=== PATIENT | female | born 1940 | race Caucasian/White ===

== ENCOUNTER → 2016-06-04 | Outpatient (CLI) | payer MEDICARE, OTHER ==
[~2016-06-04] VITALS: Ht 162.6 cm; Wt 70.0 kg
[~2016-06-04] MED LIST: ACET500C PO; BACITAB3 PO; BIMA01SOL OU; COUM1TAB19 PO; FERG1TAB PO; FERR32TA PO; FURO40TA2 PO; GEMF600T PO; GLIP2.5T6 PO; HYDR12CA PO; HYDR1OI TOP; K-TA1TAB PO; KEFL500C7 PO; LEVO100T5 PO; MAGN400T2 PO; MAPA325T2 PO; METF1000 PO; NEUR100C PO; NORC5TAB PO; NS 1,000 ML IV SCH; POTA10PO PO; PROPOFOL 200 MG/20 ML VIAL As Ordered ONE; RAMI10CA PO; REGL10TA6 PO; SIMV20TA2 PO; VALS1TAB46 PO; VITA-130 PO; XARALTO PO
--- NOTE | 2016-06-04 15:05 | ROOR ---
Patient Name: Patience Gonzalez Procedure Date: 06/04/2016 2:54 PM Date of : 1940 Age: 76 [place] [facility] [place]: Female Note Status: Finalized Procedure: Colonoscopy to Rectosigmoid (POOR PREP) Indications: Screening for colorectal malignant neoplasm Providers: Ankit Palomares MD Referring MD: Nahomy Killian DO Requesting Provider: Medicines: Monitored Anesthesia Care Complications: No immediate complications. Procedure: Pre-Anesthesia Assessment: - The heart rate, respiratory rate, oxygen saturations, blood pressure, adequacy of pulmonary ventilation, and response to care were monitored throughout the procedure. The Colonoscope was introduced through the anus with the intention of advancing to the cecum. The scope was advanced to the rectum before the procedure was aborted. Medications were given. The colonoscopy was performed without difficulty. The patient tolerated the procedure well. The quality of the bowel preparation was inadequate. Findings: The perianal and digital rectal examinations were normal. Non-bleeding internal hemorrhoids were found during retroflexion. The hemorrhoids were small and Grade I (internal hemorrhoids that do not prolapse). A large amount of stool was found in the recto-sigmoid colon, precluding visualization. The exam was otherwise without abnormality. Impression: - Preparation of the colon was inadequate. - Non-bleeding internal hemorrhoids. - Stool in the recto-sigmoid colon. - The examination was otherwise normal. - No specimens collected. - The exam was suboptimal due to patient preparation. Recommendation: - Discharge patient to home. - Resume Xarelto (rivaroxaban) at prior dose today. - The findings and recommendations were discussed with the patient's family. Ankit Palomares MD Ankit Palomares MD 06/04/2016 3:04:14 PM This report has been signed electronically. Number of Addenda: 0 Note Initiated On: 06/04/2016 2:54 PM Estimated Blood Loss: Estimated blood loss: none.
[2016-06-04 15:08] VITALS: BP 130/69
== END ==
LOC: M OPP 14:14
PROVIDERS: ATTEND Internal Medicine Gastroenterology
DX: Z12.11 Encounter for screening for malignant neoplasm of colon (principal); K64.0 First degree hemorrhoids; E11.9 Type 2 diabetes mellitus without complications; E78.00 Pure hypercholesterolemia, unspecified; I10 Essential (primary) hypertension; Z87.891 Personal history of nicotine dependence; Z79.899 Other long term (current) drug therapy; Z79.02 Long term (current) use of antithrombotics/antiplatelets

== ENCOUNTER 2016-06-29 10:49 | Emergency (ER) | payer MEDICARE, OTHER ==
[~2016-06-29 10:49] MED LIST changes: +CLIN1CAP5 PO; +FOSA70TA3 PO; +K-TA10TA PO; -NS 1,000 ML IV SCH; -PROPOFOL 200 MG/20 ML VIAL As Ordered ONE
[2016-06-29 12:19] LABS: ANION GAP 9 MEQ/L (8-16); BLOOD UREA NITROGEN 11 MG/DL (7-18); CARBON DIOXIDE LEVEL 25 MEQ/L (21-32); CHLORIDE LEVEL 106 MEQ/L (98-107); GLOMERULAR FILTRATION RATE > 60.0 (>39); GLUCOSE, FASTING 124 MG/DL (83-110); SODIUM LEVEL 140 MEQ/L (136-145)
[2016-06-29 12:24] LABS: BASO # 0.1 K/mm3 (0.0-0.2); BASO % 0.9 % (0.0-1.0); EOS # 0.3 K/mm3 (0.0-0.50); EOS % 3.6 % (0.0-3.0); LARGE UNSTAINED CELL # 0.2 K/mm3 (0.0-0.4); LARGE UNSTAINED CELL % 2.8 % (0.0-4.0); LYMPH # 1.3 K/mm3 (1.5-4.5); LYMPH % 16.1 % (24.0-44.0); MEAN CORPUSCULAR HEMOGLOBIN 19.4 pg (27.0-33.0); MEAN CORPUSCULAR HGB CONC 27.4 g/dl (32.0-36.5); MEAN CORPUSCULAR VOLUME 70.8 fl (80.0-96.0); MONO # 0.4 K/mm3 (0.0-0.8); MONO % 4.8 % (0.0-5.0); NEUTROPHILS # 5.8 K/mm3 (1.8-7.7); NEUTROPHILS % 71.8 % (36.0-66.0); PLATELET COUNT, AUTOMATED 411 k/mm3 (150-450); RED CELL DISTRIBUTION WIDTH 17.3 % (11.5-14.5)
[2016-06-29 12:46] LABS: ADD MORPHOLOGY? YES
--- NOTE | 2016-06-29 12:46 | REP ---
Clinical: Infection. Technique: AP, lateral, bilateral oblique views of the right ankle. Findings: Osteopenia and age-related degenerative changes are appreciated along with diffuse soft tissue swelling. No acute fracture or dislocation. Ankle mortise intact. No subcutaneous emphysema, radiodense foreign body, or significant periosteal reaction. Impression: Soft-tissue swelling. Degenerative changes. Signed by Jan Villatoro MD 06/29/2016 12:37 P
[2016-06-29 12:58] LABS: ANISOCYTOSIS 1+; HYPOCHROMASIA 2+; MICROCYTOSIS 2+; PLATELET CLUMPS SMALL AMT
[2016-06-29 13:15] LABS: ERYTHROCYTE SEDIMENTATION RATE 35 mm/hr (0-30)
--- NOTE | 2016-06-29 13:27 | EDDOCDS ---
Physician Documentation [facility] Name: Patience Gonzalez Age: 76 yrs Sex: Female : 1940 Arrival Date: 06/29/2016 Time: 10:49 Bed [facility] MD: Nahomy Killian E Disposition: 06/29/16 13:09 Discharged to Home/Self Care. Impression: Cellulitis of right lower limb - with chronic ulcer, medial right ankle. - Condition is Stable. - Discharge Instructions: Cellulitis. - Prescriptions for Clindamycin HCl 300 mg Oral Capsule - take 1 capsule by ORAL route every 6 hours; 40 capsule. Tylenol- Codeine #3 300-30 mg Oral Tablet - take 1 tablet by ORAL route at bedtime As needed MDD: 4 tabs; 10 tablet. - Medication Reconciliation, Local Pharmacy Hours form. - Follow up: Emergency Department; When: As needed; Reason: Worsening of conditions. Follow up: Nahomy Killian; When: 2 - 3 days; Reason: Wound/Symptom Recheck, Recheck today's complaints, Continuance of care. - Problem is new. - Symptoms are unchanged. Historical: - Allergies: no known allergies; - Home Meds: 1. metformin 1,000 mg Oral tab 1 tab 2 times per day (Last dose: 06/29/2016 07:00) 2. valsartan 80 mg oral cap daily (Last dose: Unknown) 3. gemfibrozil 600 mg Oral tab daily (Last dose: Unknown) 4. levothyroxine 137 mcg Oral cap 1 cap once daily (Last dose: 06/29/2016) 5. simvastatin 20 mg Oral tab 1 tab once daily (Last dose: 06/28/2016) 6. ramipril 10 mg Oral cap once daily (Last dose: Unknown) 7. glipizide 2.5 mg Oral tr24 1 tabs once daily 8. Lasix 40 mg Oral tab once daily 9. Xarelto 20 mg oral tab 1 tab once daily 10. ferrous gluconate 325 mg (37 mg iron) Oral tab 11. magnesium oxide 400 mg Oral cap 800 mg three times a day - PMHx: Diabetes - NIDDM: controlled; Hypertension; Hypothyroidism; Hypercholesterolemia; - PSHx: Knee surgery- Right; - Social history: Smoking status: Patient states was never smoker of tobacco. Patient/guardian denies using alcohol, street drugs, No barriers to communication noted, The patient speaks fluent Lao, Speaks appropriately for age. - Family history: Not pertinent. - : Unable to assess if pt is on anticoagulants. Home medication list is obtained from the patient, patients' pharmacy. - Exposure Risk Screening:: None identified. Vital Signs: 06/29 10:50 BP 197 / 86; Pulse 87; Resp 18; Temp 97.5(T); Pulse Ox 100% on R/A; Weight 70.31 kg / dem1 155.01 lbs (M); Height 5 ft. 2 in. (157.48 cm) (M); Pain 8/10; 13:24 BP 186 / 94 LA Sitting (man/lg); Pulse 87; Resp 18; Temp 97.7(O); Pulse Ox 100% on R/A; jjr Pain 9/10; 10:50 Body Mass Index 28.35 (70.31 kg, 157.48 cm) dem1 MDM: 11:15 Accucheck ordered. btw 11:37 Fingerstick Blood Sugar Ordered. EDMS 11:43 Financial registration complete. mm15 11:45 [facility] Payment Agreement was scanned into [employer] and attached to record. mm15 11:50 CBC with Diff Ordered. EDMS 11:50 Basic Metabolic Profile Ordered. EDMS 11:50 Sed Rate Ordered. EDMS 11:50 CRP Ordered. EDMS 11:51 Ankle, Complete Ordered. EDMS Point of Care Testing: Blood Glucose: 11:18 Blood Glucose: 126 mg/dL; ttb Ranges: Signatures: Dispatcher [employer] EDMS Felicia Alfaro RN RN jjZacarias Valdivia PA PA btw Conner, Teresa, RN RN ttDianelys [place] mm15 Mary Perez PA-C PA-C dt4 The chart was reviewed and I authenticate all verbal orders and agree with the evaluation and treatment provided.Attachments: 11:45 [facility] Payment Agreement mm15 MTDD
--- NOTE | 2016-06-29 13:27 | EDDOCDS ---
Nurse's Notes [facility] Name: Patience Gonzalez Age: 76 yrs Sex: Female : 1940 Arrival Date: 06/29/2016 Time: 10:49 Bed PR1 / 25 Private MD: Nahomy Killian E Diagnosis: Cellulitis of right lower limb-with chronic ulcer, medial right ankle Presentation: 06/29 11:04 Presenting complaint: Patient states: "I got a sore on my ankle". Pt just left PCP ttb office -- states she did not show her. Right ankle with large area of macerated skin, foul smelling. Adult Sepsis Screening: The patient does not have new or worsening altered mentation. Patient's respiratory rate is less than 22. Systolic blood pressure is greater than 100. Patient has a qSOFA score of 0- Negative Sepsis Screen. Suicide/Homicide risk assessment- the patient denies having any suicidal and/or homicidal ideations and does not present with any other emotional, behavioral or mental health complaints. Status: Patient is not a financial services auditor or dependent. Transition of care: patient was not received from another setting of care. 11:04 Acuity: GRISEL Level 4 ttb 11:04 Method Of Arrival: Walkin/Carried/Asstd ttb Triage Assessment: 11:08 General: Appears in no apparent distress, well nourished, Behavior is appropriate for ttb age, cooperative, pleasant. Pain: Denies pain. Neurological: Level of Consciousness is awake, alert. Cardiovascular: Chest pain is denied. Respiratory: No deficits noted. Derm: Skin is normal, sore to left lateral ankle. Musculoskeletal: Range of motion intact in all extremities. Historical: - Allergies: no known allergies; - Home Meds: 1. metformin 1,000 mg Oral tab 1 tab 2 times per day (Last dose: 06/29/2016 07:00) 2. valsartan 80 mg oral cap daily (Last dose: Unknown) 3. gemfibrozil 600 mg Oral tab daily (Last dose: Unknown) 4. levothyroxine 137 mcg Oral cap 1 cap once daily (Last dose: 06/29/2016) 5. simvastatin 20 mg Oral tab 1 tab once daily (Last dose: 06/28/2016) 6. ramipril 10 mg Oral cap once daily (Last dose: Unknown) 7. glipizide 2.5 mg Oral tr24 1 tabs once daily 8. Lasix 40 mg Oral tab once daily 9. Xarelto 20 mg oral tab 1 tab once daily 10. ferrous gluconate 325 mg (37 mg iron) Oral tab 11. magnesium oxide 400 mg Oral cap 800 mg three times a day - PMHx: Diabetes - NIDDM: controlled; Hypertension; Hypothyroidism; Hypercholesterolemia; - PSHx: Knee surgery- Right; - Social history: Smoking status: Patient states was never smoker of tobacco. Patient/guardian denies using alcohol, street drugs, No barriers to communication noted, The patient speaks fluent Dutch, Speaks appropriately for age. - Family history: Not pertinent. - : Unable to assess if pt is on anticoagulants. Home medication list is obtained from the patient, patients' pharmacy. - Exposure Risk Screening:: None identified. Screenin:25 Screening information is obtained from the patient. Fall risk: No risks identified. jjr Assistance ADL's: requires no assistance with activities of daily living. Abuse/DV Screen: The patient / caregiver reports he/she is: not in a situation that causes fear, pain or injury. Nutritional screening: No deficits noted. Advance Directives: There is no active DNR order. home support is adequate. Assessment: 11:20 General: med list obtained from pharmacist and copy given to patient. Pt is a very poor ttb historian.. 13:25 General: Appears in no apparent distress, Behavior is pleasant. Musculoskeletal: jjr Reports pain in right foot. Vital Signs: 10:50 BP 197 / 86; Pulse 87; Resp 18; Temp 97.5(T); Pulse Ox 100% on R/A; Weight 70.31 kg dem1 (M); Height 5 ft. 2 in. (157.48 cm) (M); Pain 8/10; 13:24 BP 186 / 94 LA Sitting (man/lg); Pulse 87; Resp 18; Temp 97.7(O); Pulse Ox 100% on R/A; jjr Pain 9/10; 10:50 Body Mass Index 28.35 (70.31 kg, 157.48 cm) [facility] Vitals: 10:50 Log In Time: June 29, 2016 at 10:48. [facility] ED Course: 10:50 Patient visited by Aquiles Cameron. dem1 10:50 Nahomy Killian is Private Physician. dem1 10:50 Patient moved to Waiting dem1 10:53 Patient moved to Pre RCE dem1 11:03 Patient moved to Triage 3 jjr 11:06 Triage Initiated ttb 11:10 Patient visited by Jannie Read RN. ttb 11:20 Patient visited by Jannie Read RN. ttb 11:33 Mary Perez PA-C is PHCP. dt4 11:33 Marlene Kim MD is Attending Physician. dt4 11:34 Patient visited by Mary Perez PA-C. dt4 11:45 [id number] Payment Agreement was scanned into [employer] and attached to record. mm15 11:57 Patient visited by Jannie Read RN. ttb 11:57 Patient moved to TR2 ttb 11:57 Basic Metabolic Profile Sent. ttb 11:57 Sed Rate Sent. ttb 11:57 CRP Sent. ttb 11:57 CBC with Diff Sent. ttb 11:57 No IV's were initiated during this patient's visit. No procedures done that require ttb assistance. Labs drawn. (by ED staff). 12:47 Ankle, Complete Returned. EDMS 13:08 Nahomy Killian is Referral Physician. dt4 13:17 Patient moved to PR jjr 13:25 The patient / caregiver is instructed regarding the plan of care and ED course. jr Point of Care Testing: Blood Glucose: 11:18 Blood Glucose: 126 mg/dL; ttb Ranges: Order Results: Lab Order: Fingerstick Blood Sugar; SPEC'M 06/29/16 11:17 Test: BEDSIDE GLUCOSE; Value: 126; Range: 83-110; Abnormal: Above high normal; Units: MG/DL; Status: F Lab Order: CBC with Diff; SPEC'M 06/29/16 11:54 Test: WHITE BLOOD COUNT; Value: 8.0; Range: 4.0-10.0; Units: K/mm3; Status: F Test: RED BLOOD COUNT; Value: 4.93; Range: 4.00-5.40; Units: M/mm3; Status: F Test: HEMOGLOBIN; Value: 9.6; Range: 12.0-16.0; Abnormal: Below low normal; Units: g/dl; Status: F Test: HEMATOCRIT; Value: 34.9; Range: 36.0-47.0; Abnormal: Below low normal; Units: %; Status: F Test: MEAN CORPUSCULAR VOLUME; Value: 70.8; Range: 80.0-96.0; Abnormal: Below low normal; Units: fl; Status: F Test: MEAN CORPUSCULAR HEMOGLOBIN; Value: 19.4; Range: 27.0-33.0; Abnormal: Below low normal; Units: pg; Status: F Test: MEAN CORPUSCULAR HGB CONC; Value: 27.4; Range: 32.0-36.5; Abnormal: Below low normal; Units: g/dl; Status: F Test: RED CELL DISTRIBUTION WIDTH; Value: 17.3; Range: 11.5-14.5; Abnormal: Above high normal; Units: %; Status: F Test: PLATELET COUNT, AUTOMATED; Value: 411; Range: 150-450; Units: k/mm3; Status: F Test: NEUTROPHILS %; Value: 71.8; Range: 36.0-66.0; Abnormal: Above high normal; Units: %; Status: F Test: LYMPH %; Value: 16.1; Range: 24.0-44.0; Abnormal: Below low normal; Units: %; Status: F Test: MONO %; Value: 4.8; Range: 0.0-5.0; Units: %; Status: F Test: EOS %; Value: 3.6; Range: 0.0-3.0; Abnormal: Above high normal; Units: %; Status: F Test: BASO %; Value: 0.9; Range: 0.0-1.0; Units: %; Status: F Test: LARGE UNSTAINED CELL %; Value: 2.8; Range: 0.0-4.0; Units: %; Status: F Test: NEUTROPHILS #; Value: 5.8; Range: 1.8-7.7; Units: K/mm3; Status: F Test: LYMPH #; Value: 1.3; Range: 1.5-4.5; Abnormal: Below low normal; Units: K/mm3; Status: F Test: MONO #; Value: 0.4; Range: 0.0-0.8; Units: K/mm3; Status: F Test: EOS #; Value: 0.3; Range: 0.0-0.50; Units: K/mm3; Status: F Test: BASO #; Value: 0.1; Range: 0.0-0.2; Units: K/mm3; Status: F Test: LARGE UNSTAINED CELL #; Value: 0.2; Range: 0.0-0.4; Units: K/mm3; Status: F Lab Order: Basic Metabolic Profile; SPEC'M 06/29/16 11:54 Test: GLUCOSE, FASTING; Value: 124; Range: 83-110; Abnormal: Above high normal; Units: MG/DL; Status: F Test: BLOOD UREA NITROGEN; Value: 11; Range: 7-18; Units: MG/DL; Status: F Test: CREATININE FOR GFR; Value: 0.60; Range: 0.55-1.02; Units: MG/DL; Status: F Test: GLOMERULAR FILTRATION RATE; Value: > 60.0; Range: >39; Status: F Test: SODIUM LEVEL; Value: 140; Range: 136-145; Units: MEQ/L; Status: F Test: POTASSIUM SERUM; Value: 4.0; Range: 3.5-5.1; Units: MEQ/L; Status: F Test: CHLORIDE LEVEL; Value: 106; Range: 98-107; Units: MEQ/L; Status: F Test: CARBON DIOXIDE LEVEL; Value: 25; Range: 21-32; Units: MEQ/L; Status: F Test: ANION GAP; Value: 9; Range: 8-16; Units: MEQ/L; Status: F Test: CALCIUM LEVEL; Value: 9.0; Range: 8.8-10.2; Units: MG/DL; Status: F Test Note: ; Units are mL/min/1.73 m2 Chronic Kidney Disease Staging per NKF: Stage I & II GFR >=60 Normal to Mildly Decreased Stage III GFR 30-59 Moderately Decreased Stage IV GFR 15-29 Severely Decreased Stage V GFR <15 Very Little GFR Left ESRD GFR <15 on DIRECTOR OF PRODUCT [employer]ETING Lab Order: Sed Rate; SPEC'06/29/16 11:54 Test: ERYTHROCYTE SEDIMENTATION RATE; Value: 35; Range: 0-30; Abnormal: Above high normal; Units: mm/hr; Status: F Lab Order: CRP; SPEC'M 06/29/16 11:54 Test: C REACTIVE PROTEIN QUANTITATIV; Value: 0.31; Range: 0.00-0.30; Abnormal: Above high normal; Units: MG/DL; Status: F Lab Order: RBC MORPH PROF NO CHARGE; SPEC'M 06/29/16 11:54 Test: PLATELET ESTIMATE; Range: NORMAL; Status: I Test: HYPOCHROMASIA; Value: 2+; Status: F Test: ANISOCYTOSIS; Value: 1+; Status: F Test: MICROCYTOSIS; Value: 2+; Status: F Test: PLATELET CLUMPS; Value: SMALL AMT; Status: F Test: PLATELET ESTIMATE; Value: NORMAL; Range: NORMAL; Status: F Radiology Order: Ankle, Complete Test: Ankle, Complete REASON FOR EXAMINATION: right medial ankle infection; Clinical: Infection.; ; Technique: AP, lateral, bilateral oblique views of the right ankle.; ; Findings:; Osteopenia and age-related degenerative changes are appreciated along with; diffuse soft tissue swelling. No acute fracture or dislocation. Ankle mortise; intact. No subcutaneous emphysema, radiodense foreign body, or significant; periosteal reaction.; ; Impression:; Soft-tissue swelling.; Degenerative changes.; ; ; Signed by; Jan Villatoro MD 06/29/2016 12:37 P; Outcome: 13:09 Discharge ordered by Provider. dt4 13:25 Discharge Assessment: patient administered narcotics - no. The following High Risk jjr Discharge criteria are identified: None. Discharged to home ambulatory, with significant other. Condition: stable. Discharge instructions given to patient, Instructed on discharge instructions, follow up and referral plans. medication usage, Demonstrated understanding of instructions, medications, Prescriptions given X 2. No special radiology studies were completed. Property sent home with patient. 13:26 Patient left the ED. jjr Signatures: Dispatcher [employer] Felicia Beard RN RN jjr Mack, Demeishia dem1 Jannie Read RN RN Dianelys Hernandez mm15 Mary Perez, PA-C PA-C dt4 MTDD
--- NOTE | 2016-07-01 14:27 | EDDOCDS ---
Physician Documentation [facility] Name: Patience Gonzalez Age: 76 yrs Sex: Female : 1940 Arrival Date: 06/29/2016 Time: 10:49 Bed [facility] MD: Nahomy Killian E Disposition: 06/29/16 13:09 Discharged to Home/Self Care. Impression: Cellulitis of right lower limb - with chronic ulcer, medial right ankle. - Condition is Stable. - Discharge Instructions: Cellulitis. - Prescriptions for Clindamycin HCl 300 mg Oral Capsule - take 1 capsule by ORAL route every 6 hours; 40 capsule. Tylenol- Codeine #3 300-30 mg Oral Tablet - take 1 tablet by ORAL route at bedtime As needed MDD: 4 tabs; 10 tablet. - Medication Reconciliation, Local Pharmacy Hours form. - Follow up: Emergency Department; When: As needed; Reason: Worsening of conditions. Follow up: Nahomy Killian; When: 2 - 3 days; Reason: Wound/Symptom Recheck, Recheck today's complaints, Continuance of care. - Problem is new. - Symptoms are unchanged. Historical: - Allergies: no known allergies; - Home Meds: 1. metformin 1,000 mg Oral tab 1 tab 2 times per day (Last dose: 06/29/2016 07:00) 2. valsartan 80 mg oral cap daily (Last dose: Unknown) 3. gemfibrozil 600 mg Oral tab daily (Last dose: Unknown) 4. levothyroxine 137 mcg Oral cap 1 cap once daily (Last dose: 06/29/2016) 5. simvastatin 20 mg Oral tab 1 tab once daily (Last dose: 06/28/2016) 6. ramipril 10 mg Oral cap once daily (Last dose: Unknown) 7. glipizide 2.5 mg Oral tr24 1 tabs once daily 8. Lasix 40 mg Oral tab once daily 9. Xarelto 20 mg oral tab 1 tab once daily 10. ferrous gluconate 325 mg (37 mg iron) Oral tab 11. magnesium oxide 400 mg Oral cap 800 mg three times a day - PMHx: Diabetes - NIDDM: controlled; Hypertension; Hypothyroidism; Hypercholesterolemia; - PSHx: Knee surgery- Right; - Social history: Smoking status: Patient states was never smoker of tobacco. Patient/guardian denies using alcohol, street drugs, No barriers to communication noted, The patient speaks fluent Bengali, Speaks appropriately for age. - Family history: Not pertinent. - : Unable to assess if pt is on anticoagulants. Home medication list is obtained from the patient, patients' pharmacy. - Exposure Risk Screening:: None identified. Vital Signs: 06/29 10:50 BP 197 / 86; Pulse 87; Resp 18; Temp 97.5(T); Pulse Ox 100% on R/A; Weight 70.31 kg / dem1 155.01 lbs (M); Height 5 ft. 2 in. (157.48 cm) (M); Pain 8/10; 13:24 BP 186 / 94 LA Sitting (man/lg); Pulse 87; Resp 18; Temp 97.7(O); Pulse Ox 100% on R/A; jjr Pain 9/10; 10:50 Body Mass Index 28.35 (70.31 kg, 157.48 cm) dem1 MDM: 11:15 Accucheck ordered. btw 11:37 Fingerstick Blood Sugar Ordered. EDMS 11:43 Financial registration complete. mm15 11:45 [facility] Payment Agreement was scanned into [employer] and attached to record. mm15 11:50 CBC with Diff Ordered. EDMS 11:50 Basic Metabolic Profile Ordered. EDMS 11:50 Sed Rate Ordered. EDMS 11:50 CRP Ordered. EDMS 11:51 Ankle, Complete Ordered. EDMS 06/30 09:24 T-Sheet-- Draft Copy was scanned into [employer] and attached to record. gb 09:24 Radiology Report was scanned into [employer] and attached to record. Point of Care Testing: Blood Glucose: 06/29 11:18 Blood Glucose: 126 mg/dL; ttb Ranges: Signatures: Dispatcher [employer] EDMS Marifer Parrish, Reg Reg gb Felicia Alfaro, PETE RN Zacarias Dodge PA PA btw Conner, Teresa, RN RN ttb Dianelys Joel mm15 Mary Perez PA-C PA-C dt4 The chart was reviewed and I authenticate all verbal orders and agree with the evaluation and treatment provided.Attachments: 11:45 [facility] Payment Agreement mm15 02/18 09:24 T-Sheet-- Draft Copy gb Chart Complete MTDD
--- NOTE | 2016-07-01 14:27 | EDDOCDS ---
Physician Documentation [facility] Name: Patience Gonzalez Age: 76 yrs Sex: Female : 1940 Arrival Date: 06/29/2016 Time: 10:49 Bed [facility] MD: Nahomy Killian E Disposition: 06/29/16 13:09 Discharged to Home/Self Care. Impression: Cellulitis of right lower limb - with chronic ulcer, medial right ankle. - Condition is Stable. - Discharge Instructions: Cellulitis. - Prescriptions for Clindamycin HCl 300 mg Oral Capsule - take 1 capsule by ORAL route every 6 hours; 40 capsule. Tylenol- Codeine #3 300-30 mg Oral Tablet - take 1 tablet by ORAL route at bedtime As needed MDD: 4 tabs; 10 tablet. - Medication Reconciliation, Local Pharmacy Hours form. - Follow up: Emergency Department; When: As needed; Reason: Worsening of conditions. Follow up: Nahomy Killian; When: 2 - 3 days; Reason: Wound/Symptom Recheck, Recheck today's complaints, Continuance of care. - Problem is new. - Symptoms are unchanged. Historical: - Allergies: no known allergies; - Home Meds: 1. metformin 1,000 mg Oral tab 1 tab 2 times per day (Last dose: 06/29/2016 07:00) 2. valsartan 80 mg oral cap daily (Last dose: Unknown) 3. gemfibrozil 600 mg Oral tab daily (Last dose: Unknown) 4. levothyroxine 137 mcg Oral cap 1 cap once daily (Last dose: 06/29/2016) 5. simvastatin 20 mg Oral tab 1 tab once daily (Last dose: 06/28/2016) 6. ramipril 10 mg Oral cap once daily (Last dose: Unknown) 7. glipizide 2.5 mg Oral tr24 1 tabs once daily 8. Lasix 40 mg Oral tab once daily 9. Xarelto 20 mg oral tab 1 tab once daily 10. ferrous gluconate 325 mg (37 mg iron) Oral tab 11. magnesium oxide 400 mg Oral cap 800 mg three times a day - PMHx: Diabetes - NIDDM: controlled; Hypertension; Hypothyroidism; Hypercholesterolemia; - PSHx: Knee surgery- Right; - Social history: Smoking status: Patient states was never smoker of tobacco. Patient/guardian denies using alcohol, street drugs, No barriers to communication noted, The patient speaks fluent Telugu, Speaks appropriately for age. - Family history: Not pertinent. - : Unable to assess if pt is on anticoagulants. Home medication list is obtained from the patient, patients' pharmacy. - Exposure Risk Screening:: None identified. Vital Signs: 06/29 10:50 BP 197 / 86; Pulse 87; Resp 18; Temp 97.5(T); Pulse Ox 100% on R/A; Weight 70.31 kg / dem1 155.01 lbs (M); Height 5 ft. 2 in. (157.48 cm) (M); Pain 8/10; 13:24 BP 186 / 94 LA Sitting (man/lg); Pulse 87; Resp 18; Temp 97.7(O); Pulse Ox 100% on R/A; jjr Pain 9/10; 10:50 Body Mass Index 28.35 (70.31 kg, 157.48 cm) dem1 MDM: 11:15 Accucheck ordered. btw 11:37 Fingerstick Blood Sugar Ordered. EDMS 11:43 Financial registration complete. mm15 11:45 [facility] Payment Agreement was scanned into [employer] and attached to record. mm15 11:50 CBC with Diff Ordered. EDMS 11:50 Basic Metabolic Profile Ordered. EDMS 11:50 Sed Rate Ordered. EDMS 11:50 CRP Ordered. EDMS 11:51 Ankle, Complete Ordered. EDMS 06/30 09:24 T-Sheet-- Draft Copy was scanned into [employer] and attached to record. gb 09:24 Radiology Report was scanned into [employer] and attached to record. Point of Care Testing: Blood Glucose: 06/29 11:18 Blood Glucose: 126 mg/dL; ttb Ranges: Signatures: Dispatcher [employer] EDMS Marifer Parrish, Reg Reg gb Felicia Alfaro, PETE RN Zacarias Dodge PA PA btw Conner, Teresa, RN RN ttb Dianelys Joel mm15 Mary Perez PA-C PA-C dt4 The chart was reviewed and I authenticate all verbal orders and agree with the evaluation and treatment provided.Attachments: 11:45 [facility] Payment Agreement mm15 02/18 09:24 T-Sheet-- Draft Copy gb Chart Complete MTDD
--- NOTE | 2016-07-01 14:27 | EDDOCDS ---
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 Pt just left PCP ttb office -- states she did not show her. Right ankle with large area of macerated skin, foul smelling. Adult Sepsis Screening: The patient does not have new or worsening altered mentation. Patient's respiratory rate is less than 22. Systolic blood pressure is greater than 100. Patient has a qSOFA score of 0- Negative Sepsis Screen. Suicide/Homicide risk assessment- the patient denies having any suicidal and/or homicidal ideations and does not present with any other emotional, behavioral or mental health complaints. Status: Patient is not a health service coordinator or dependent. Transition of care: patient was not received from another setting of care. 11:04 Acuity: GRISEL Level 4 ttb 11:04 Method Of Arrival: Walkin/Carried/Asstd ttb Triage Assessment: 11:08 General: Appears in no apparent distress, well nourished, Behavior is appropriate for ttb age, cooperative, pleasant. Pain: Denies pain. Neurological: Level of Consciousness is awake, alert. Cardiovascular: Chest pain is denied. Respiratory: No deficits noted. Derm: Skin is normal, sore to left lateral ankle. Musculoskeletal: Range of motion intact in all extremities. Historical: - Allergies: no known allergies; - Home Meds: 1. metformin 1,000 mg Oral tab 1 tab 2 times per day (Last dose: 06/29/2016 07:00) 2. valsartan 80 mg oral cap daily (Last dose: Unknown) 3. gemfibrozil 600 mg Oral tab daily (Last dose: Unknown) 4. levothyroxine 137 mcg Oral cap 1 cap once daily (Last dose: 06/29/2016) 5. simvastatin 20 mg Oral tab 1 tab once daily (Last dose: 06/28/2016) 6. ramipril 10 mg Oral cap once daily (Last dose: Unknown) 7. glipizide 2.5 mg Oral tr24 1 tabs once daily 8. Lasix 40 mg Oral tab once daily 9. Xarelto 20 mg oral tab 1 tab once daily 10. ferrous gluconate 325 mg (37 mg iron) Oral tab 11. magnesium oxide 400 mg Oral cap 800 mg three times a day - PMHx: Diabetes - NIDDM: controlled; Hypertension; Hypothyroidism; Hypercholesterolemia; - PSHx: Knee surgery- Right; - Social history: Smoking status: Patient states was never smoker of tobacco. Patient/guardian denies using alcohol, street drugs, No barriers to communication noted, The patient speaks fluent Dutch, Speaks appropriately for age. - Family history: Not pertinent. - : Unable to assess if pt is on anticoagulants. Home medication list is obtained from the patient, patients' pharmacy. - Exposure Risk Screening:: None identified. Screenin:25 Screening information is obtained from the patient. Fall risk: No risks identified. jjr Assistance ADL's: requires no assistance with activities of daily living. Abuse/DV Screen: The patient / caregiver reports he/she is: not in a situation that causes fear, pain or injury. Nutritional screening: No deficits noted. Advance Directives: There is no active DNR order. home support is adequate. Assessment: 11:20 General: med list obtained from pharmacist and copy given to patient. Pt is a very poor ttb historian.. 13:25 General: Appears in no apparent distress, Behavior is pleasant. Musculoskeletal: jjr Reports pain in right foot. Vital Signs: 10:50 BP 197 / 86; Pulse 87; Resp 18; Temp 97.5(T); Pulse Ox 100% on R/A; Weight 70.31 kg dem1 (M); Height 5 ft. 2 in. (157.48 cm) (M); Pain 8/10; 13:24 BP 186 / 94 LA Sitting (man/lg); Pulse 87; Resp 18; Temp 97.7(O); Pulse Ox 100% on R/A; jjr Pain 9/10; 10:50 Body Mass Index 28.35 (70.31 kg, 157.48 cm) [facility] Vitals: 10:50 Log In Time: June 29, 2016 at 10:48. [facility] ED Course: 10:50 Patient visited by Aquiles Cameron. dem1 10:50 Nahomy Killian is Private Physician. dem1 10:50 Patient moved to Waiting dem1 10:53 Patient moved to Pre RCE dem1 11:03 Patient moved to Triage 3 jjr 11:06 Triage Initiated ttb 11:10 Patient visited by Jannie Read RN. ttb 11:20 Patient visited by Jannie Read RN. ttb 11:33 Mary Perez PA-C is PHCP. dt4 11:33 Marlene Kim MD is Attending Physician. dt4 11:34 Patient visited by Mary Perez PA-C. dt4 11:45 [facility] Payment Agreement was scanned into [employer] and attached to record. mm15 11:57 Patient visited by Jannie Read RN. ttb 11:57 Patient moved to TR2 ttb 11:57 Basic Metabolic Profile Sent. ttb 11:57 Sed Rate Sent. ttb 11:57 CRP Sent. ttb 11:57 CBC with Diff Sent. ttb 11:57 No IV's were initiated during this patient's visit. No procedures done that require ttb assistance. Labs drawn. (by ED staff). 12:47 Ankle, Complete Returned. EDMS 13:08 Nahomy Killian is Referral Physician. dt4 13:17 Patient moved to PR1 / jjr 13:25 The patient / caregiver is instructed regarding the plan of care and ED course. jr 06/30 09:24 T-Sheet-- Draft Copy was scanned into [employer] and attached to record. gb 09:24 Radiology Report was scanned into [employer] and attached to record. gb Point of Care Testing: Blood Glucose: 06/29 11:18 Blood Glucose: 126 mg/dL; ttb Ranges: Order Results: Lab Order: Fingerstick Blood Sugar; SPEC'M 06/29/16 11:17 Test: BEDSIDE GLUCOSE; Value: 126; Range: 83-110; Abnormal: Above high normal; Units: MG/DL; Status: F Lab Order: CBC with Diff; SPEC'M 06/29/16 11:54 Test: WHITE BLOOD COUNT; Value: 8.0; Range: 4.0-10.0; Units: K/mm3; Status: F Test: RED BLOOD COUNT; Value: 4.93; Range: 4.00-5.40; Units: M/mm3; Status: F Test: HEMOGLOBIN; Value: 9.6; Range: 12.0-16.0; Abnormal: Below low normal; Units: g/dl; Status: F Test: HEMATOCRIT; Value: 34.9; Range: 36.0-47.0; Abnormal: Below low normal; Units: %; Status: F Test: MEAN CORPUSCULAR VOLUME; Value: 70.8; Range: 80.0-96.0; Abnormal: Below low normal; Units: fl; Status: F Test: MEAN CORPUSCULAR HEMOGLOBIN; Value: 19.4; Range: 27.0-33.0; Abnormal: Below low normal; Units: pg; Status: F Test: MEAN CORPUSCULAR HGB CONC; Value: 27.4; Range: 32.0-36.5; Abnormal: Below low normal; Units: g/dl; Status: F Test: RED CELL DISTRIBUTION WIDTH; Value: 17.3; Range: 11.5-14.5; Abnormal: Above high normal; Units: %; Status: F Test: PLATELET COUNT, AUTOMATED; Value: 411; Range: 150-450; Units: k/mm3; Status: F Test: NEUTROPHILS %; Value: 71.8; Range: 36.0-66.0; Abnormal: Above high normal; Units: %; Status: F Test: LYMPH %; Value: 16.1; Range: 24.0-44.0; Abnormal: Below low normal; Units: %; Status: F Test: MONO %; Value: 4.8; Range: 0.0-5.0; Units: %; Status: F Test: EOS %; Value: 3.6; Range: 0.0-3.0; Abnormal: Above high normal; Units: %; Status: F Test: BASO %; Value: 0.9; Range: 0.0-1.0; Units: %; Status: F Test: LARGE UNSTAINED CELL %; Value: 2.8; Range: 0.0-4.0; Units: %; Status: F Test: NEUTROPHILS #; Value: 5.8; Range: 1.8-7.7; Units: K/mm3; Status: F Test: LYMPH #; Value: 1.3; Range: 1.5-4.5; Abnormal: Below low normal; Units: K/mm3; Status: F Test: MONO #; Value: 0.4; Range: 0.0-0.8; Units: K/mm3; Status: F Test: EOS #; Value: 0.3; Range: 0.0-0.50; Units: K/mm3; Status: F Test: BASO #; Value: 0.1; Range: 0.0-0.2; Units: K/mm3; Status: F Test: LARGE UNSTAINED CELL #; Value: 0.2; Range: 0.0-0.4; Units: K/mm3; Status: F Lab Order: Basic Metabolic Profile; [facility] 06/29/16 11:54 Test: GLUCOSE, FASTING; Value: 124; Range: 83-110; Abnormal: Above high normal; Units: MG/DL; Status: F Test: BLOOD UREA NITROGEN; Value: 11; Range: 7-18; Units: MG/DL; Status: F Test: CREATININE FOR GFR; Value: 0.60; Range: 0.55-1.02; Units: MG/DL; Status: F Test: GLOMERULAR FILTRATION RATE; Value: > 60.0; Range: >39; Status: F Test: SODIUM LEVEL; Value: 140; Range: 136-145; Units: MEQ/L; Status: F Test: POTASSIUM SERUM; Value: 4.0; Range: 3.5-5.1; Units: MEQ/L; Status: F Test: CHLORIDE LEVEL; Value: 106; Range: 98-107; Units: MEQ/L; Status: F Test: CARBON DIOXIDE LEVEL; Value: 25; Range: 21-32; Units: MEQ/L; Status: F Test: ANION GAP; Value: 9; Range: 8-16; Units: MEQ/L; Status: F Test: CALCIUM LEVEL; Value: 9.0; Range: 8.8-10.2; Units: MG/DL; Status: F Test Note: ; Units are mL/min/1.73 m2 Chronic Kidney Disease Staging per NKF: Stage I & II GFR >=60 Normal to Mildly Decreased Stage III GFR 30-59 Moderately Decreased Stage IV GFR 15-29 Severely Decreased Stage V GFR <15 Very Little GFR Left ESRD GFR <15 on BATCHING OPERATOR Lab Order: Sed Rate; SPEC'M 06/29/16 11:54 Test: ERYTHROCYTE SEDIMENTATION RATE; Value: 35; Range: 0-30; Abnormal: Above high normal; Units: mm/hr; Status: F Lab Order: CRP; SPEC06/29/16 11:54 Test: C REACTIVE PROTEIN QUANTITATIV; Value: 0.31; Range: 0.00-0.30; Abnormal: Above high normal; Units: MG/DL; Status: F Lab Order: RBC MORPH PROF NO CHARGE; SPEC06/29/16 11:54 Test: PLATELET ESTIMATE; Range: NORMAL; Status: I Test: HYPOCHROMASIA; Value: 2+; Status: F Test: ANISOCYTOSIS; Value: 1+; Status: F Test: MICROCYTOSIS; Value: 2+; Status: F Test: PLATELET CLUMPS; Value: SMALL AMT; Status: F Test: PLATELET ESTIMATE; Value: NORMAL; Range: NORMAL; Status: F Radiology Order: Ankle, Complete Test: Ankle, Complete REASON FOR EXAMINATION: right medial ankle infection; Clinical: Infection.; ; Technique: AP, lateral, bilateral oblique views of the right ankle.; ; Findings:; Osteopenia and age-related degenerative changes are appreciated along with; diffuse soft tissue swelling. No acute fracture or dislocation. Ankle mortise; intact. No subcutaneous emphysema, radiodense foreign body, or significant; periosteal reaction.; ; Impression:; Soft-tissue swelling.; Degenerative changes.; ; ; Signed by; Jan Villatoro MD 06/29/2016 12:37 P; Outcome: 13:09 Discharge ordered by Provider. dt4 13:25 Discharge Assessment: patient administered narcotics - no. The following High Risk jjr Discharge criteria are identified: None. Discharged to home ambulatory, with significant other. Condition: stable. Discharge instructions given to patient, Instructed on discharge instructions, follow up and referral plans. medication usage, Demonstrated understanding of instructions, medications, Prescriptions given X 2. No special radiology studies were completed. Property sent home with patient. 13:26 Patient left the ED. jjr Signatures: Dispatcher [employer] EDWI Marifer Parrish, Felicia Gonzales RN RN Aquiles Zelaya Teresa, RN RN ttb Dianelys Joel mm15 Mary Perez, PAJensenC PA-C dt4 Chart Complete MTDD
== END 2016-06-29 13:26 | disposition home or self-care (01) ==
LOC: M ED 10:49
DX: L03.115 Cellulitis of right lower limb (principal); L97.319 Non-pressure chronic ulcer of right ankle with unspecified severity; E11.9 Type 2 diabetes mellitus without complications; I10 Essential (primary) hypertension; E03.9 Hypothyroidism, unspecified; E78.00 Pure hypercholesterolemia, unspecified; Z79.899 Other long term (current) drug therapy

== ENCOUNTER 2016-07-05 17:33 | Emergency (ER) | payer MEDICARE, OTHER ==
[2016-07-05 18:38] LABS: MEAN CORPUSCULAR HEMOGLOBIN 20.1 pg (27.0-33.0); MEAN CORPUSCULAR HGB CONC 28.4 g/dl (32.0-36.5); MEAN CORPUSCULAR VOLUME 70.7 fl (80.0-96.0); RED CELL DISTRIBUTION WIDTH 18.2 % (11.5-14.5); WHITE BLOOD COUNT 6.1 K/mm3 (4.0-10.0)
--- NOTE | 2016-07-05 19:39 | EDDOCDS ---
Nurse's Notes [facility] Name: Patience Gonzalez Age: 76 yrs Sex: Female : 1940 Arrival Date: 07/05/2016 Time: 17:33 Bed 15 Private MD: Nahomy Killian E Diagnosis: Epistaxis Presentation: 07/05 17:40 Presenting complaint: Patient states: started with right side nose bleed at 2pm today . srm now bleeding from left. pt is on xarelto. blood dribbling from left nare. Adult Sepsis Screening: The patient does not have new or worsening altered mentation. Patient's respiratory rate is less than 22. Systolic blood pressure is greater than 100. Patient has a qSOFA score of 0- Negative Sepsis Screen. Suicide/Homicide risk assessment- the patient denies having any suicidal and/or homicidal ideations and does not present with any other emotional, behavioral or mental health complaints. Status: Patient is not a service advisor or dependent. Transition of care: patient was not received from another setting of care. 17:40 Acuity: GRISEL Level 3 srm 17:40 Method Of Arrival: Walkin/Carried/Asstd srm Triage Assessment: 17:42 General: Appears in no apparent distress, Behavior is appropriate for age, cooperative. srm Pain: Denies pain. Historical: - Allergies: no known allergies; - Home Meds: 1. ferrous gluconate 325 mg (37 mg iron) Oral tab 2. gemfibrozil 600 mg Oral tab daily 3. glipizide 2.5 mg Oral tr24 1 tabs once daily 4. Lasix 40 mg Oral tab once daily 5. levothyroxine 137 mcg Oral cap 1 cap once daily 6. magnesium oxide 400 mg Oral cap 400 mg three times a day 7. metformin 1,000 mg Oral tab 1 tab 2 times per day 8. ramipril 10 mg Oral cap once daily 9. simvastatin 20 mg Oral tab 1 tab once daily 10. valsartan 80 mg oral cap daily 11. Xarelto 20 mg oral tab 1 tab once daily - PMHx: Diabetes - NIDDM: controlled; Hypercholesterolemia; Hypertension; Hypothyroidism; - PSHx: Knee surgery- Right; - Social history: Smoking status: Patient states former smoker of tobacco. No barriers to communication noted, The patient speaks fluent Albanian, Speaks appropriately for age. - Family history: Not pertinent. - : The pt / caregiver states he / she is on anticoagulants: Xarelto Home medication list is obtained from the patient. - Exposure Risk Screening:: None identified. Screenin:26 Screening information is obtained from the patient. Fall risk: No risks identified. js15 Assistance ADL's: requires no assistance with activities of daily living. Abuse/DV Screen: The patient / caregiver reports he/she is: not in a situation that causes fear, pain or injury. Nutritional screening: No deficits noted. Advance Directives: There is. home support is adequate. Assessment: 19:25 General: Appears in no apparent distress, comfortable, Behavior is appropriate for age, js15 cooperative. Pain: Denies pain. Neurological: Level of Consciousness is awake, alert, obeys commands, Oriented to person, place, time. EENT: Nares are clear bilaterally. Respiratory: Airway is patent Respiratory effort is even, unlabored, Respiratory pattern is regular, symmetrical. Derm: Skin is pink, warm & dry. Vital Signs: 17:35 BP 204 / 115; Pulse 115; Resp 18 S; Temp 98.6(O); Pulse Ox 99% on R/A; Weight 79.83 kg gr2 (R); Height 5 ft. 4 in. (162.56 cm) (R); Pain 0/10; 19:25 BP 165 / 78; Pulse 94; Resp 20; Temp 96.8(O); Pulse Ox 97% on R/A; Pain 0/10; js15 17:35 Body Mass Index 30.21 (79.83 kg, 162.56 cm) gr2 Vitals: 17:35 Log In Time: July 05, 2016 at 17:35. RN notified that patient meets Red Flag gr2 criteria. ED Course: 17:34 Patient visited by Kim Alfaro. gr2 17:34 Nahomy Killian is Private Physician. gr2 17:34 Patient moved to Waiting gr2 17:41 Triage Initiated srm 17:42 Patient visited by Kim Alfaro. gr2 17:43 Patient moved to 15 srm 18:05 Orquidea Crowley FNP [facility]. le 18:09 Patient visited by Orquidea Crowley FNP. le 18:10 Patient visited by Orquidea Crowley FNP. le 18:52 [facility] Payment Agreement was scanned into [employer] and attached to record. kf3 18:53 Patient visited by Will Mullins RN. ml6 19:23 Nahomy Killian is Referral Physician. le 19:26 The patient / caregiver is instructed regarding the plan of care and ED course. js15 19:26 No IV's were initiated during this patient's visit. No procedures done that require js15 assistance. Order Results: Lab Order: PTT; [facility] 07/05/16 18:23 Test: PARTIAL THROMBOPLASTIN TIME; Value: 33.3; Range: 26.6-37.1; Units: SECONDS; Status: F Lab Order: PT/INR; [facility] 07/05/16 18:23 Test: PROTHROMBIN TIME; Value: 13.3; Range: 12.3-14.5; Units: SECONDS; Status: F Test: INR; Value: 1.00; Status: F Test Note: ; THERAPUTIC HUMAN INR VALUES INDICATIONS NORMAL RANGES PROPHYLAXIS/TREATMENT OF: VENOUS THROMBOSIS 2.0-3.0 PULMONARY EMBOLISM 2.0-3.0 PREVENTION OF SYSTEMIC EMBOLISM FROM: TISSUE HEART VALVES 2.0-3.0 ACUTE MYOCARDIAL INFARCTION 2.0-3.0 VALVULAR HEART DISEASE 2.0-3.0 ATRIAL FIBRILLATION 2.0-3.0 MECHANICAL VALVES(HIGH RISK) 2.5-3.5 RECURRENT MYOCARDIAL INFARCTION 2.5-3.5 Lab Order: CBC; [facility] 07/05/16 18:23 Test: WHITE BLOOD COUNT; Value: 6.1; Range: 4.0-10.0; Units: K/mm3; Status: F Test: RED BLOOD COUNT; Value: 4.20; Range: 4.00-5.40; Units: M/mm3; Status: F Test: HEMOGLOBIN; Value: 8.4; Range: 12.0-16.0; Abnormal: Below low normal; Units: g/dl; Status: F Test: HEMATOCRIT; Value: 29.7; Range: 36.0-47.0; Abnormal: Below low normal; Units: %; Status: F Test: MEAN CORPUSCULAR VOLUME; Value: 70.7; Range: 80.0-96.0; Abnormal: Below low normal; Units: fl; Status: F Test: MEAN CORPUSCULAR HEMOGLOBIN; Value: 20.1; Range: 27.0-33.0; Abnormal: Below low normal; Units: pg; Status: F Test: MEAN CORPUSCULAR HGB CONC; Value: 28.4; Range: 32.0-36.5; Abnormal: Below low normal; Units: g/dl; Status: F Test: RED CELL DISTRIBUTION WIDTH; Value: 18.2; Range: 11.5-14.5; Abnormal: Above high normal; Units: %; Status: F Test: PLATELET COUNT, AUTOMATED; Value: 311; Range: 150-450; Units: k/mm3; Status: F Outcome: 19:24 Discharge ordered by Provider. jj 19:37 Discharge Assessment: Patient awake, alert and oriented x 3. No cognitive and/or js15 functional deficits noted. Patient verbalized understanding of disposition instructions. patient administered narcotics - no. The following High Risk Discharge criteria are identified: None. Discharged to home ambulatory, with significant other. Condition: improved. Discharge instructions given to patient, Instructed on discharge instructions, follow up and referral plans. prevention of nosebleeds Demonstrated understanding of instructions, nosebleed prevention Pt was receptive of discharge instructions/ teaching. No special radiology studies were completed. Property sent home with patient. 19:38 Patient left the ED. js15 Signatures: Halima Leslie, RN RN Orquidea Henoa, LAW OFFICE MANAGER LAW OFFICE MANAGER Jorge Turner, Reg Reg kf3 Will Mullins RN RN ml6 Kim Alfaro gr2 Liz Greenwood RN RN js15 MTDD
--- NOTE | 2016-07-05 19:39 | EDDOCDS ---
Physician Documentation [facility] Name: Patience Gonzalez Age: 76 yrs Sex: Female : 1940 Arrival Date: 07/05/2016 Time: 17:33 Bed 15 Private MD: Nahomy Killian E Disposition: 07/05/16 19:24 Discharged to Home/Self Care. Impression: Epistaxis. - Condition is Stable. - Discharge Instructions: Nosebleed. - Medication Reconciliation, Local Pharmacy Hours form. - Follow up: Nahomy Killian; When: Call to arrange an appointment; Reason: Recheck today's complaints, Continuance of care. - Problem is new. - Symptoms are resolved. - Notes: Avoid: Blowing your nose: it is best to wipe away nasal secretions carefully. Sneezing: If you must sneeze, keep your mouth open and do not pinch your nose closed Sucking: Do not drink through a straw Blowing: Do not blow up balloons, or similar items Pushing or lifting: Do not lift or push objects weighing more than 20 pounds Bending over: Keep your head above the level of your heart. Sleep with you head slightly raised If your nose starts bleeding again, use the nose clip and an ice pack to the back of your neck. Return to the ER if you nose is still bleeding a 1/2 hour after you apply the clip Historical: - Allergies: no known allergies; - Home Meds: 1. ferrous gluconate 325 mg (37 mg iron) Oral tab 2. gemfibrozil 600 mg Oral tab daily 3. glipizide 2.5 mg Oral tr24 1 tabs once daily 4. Lasix 40 mg Oral tab once daily 5. levothyroxine 137 mcg Oral cap 1 cap once daily 6. magnesium oxide 400 mg Oral cap 400 mg three times a day 7. metformin 1,000 mg Oral tab 1 tab 2 times per day 8. ramipril 10 mg Oral cap once daily 9. simvastatin 20 mg Oral tab 1 tab once daily 10. valsartan 80 mg oral cap daily 11. Xarelto 20 mg oral tab 1 tab once daily - PMHx: Diabetes - NIDDM: controlled; Hypercholesterolemia; Hypertension; Hypothyroidism; - PSHx: Knee surgery- Right; - Social history: Smoking status: Patient states former smoker of tobacco. No barriers to communication noted, The patient speaks fluent Luxembourgish, Speaks appropriately for age. - Family history: Not pertinent. - : The pt / caregiver states he / she is on anticoagulants: Xarelto Home medication list is obtained from the patient. - Exposure Risk Screening:: None identified. Vital Signs: 07/05 17:35 BP 204 / 115; Pulse 115; Resp 18 S; Temp 98.6(O); Pulse Ox 99% on R/A; Weight 79.83 kg gr2 / 176 lbs (R); Height 5 ft. 4 in. (162.56 cm) (R); Pain 0/10; 19:25 BP 165 / 78; Pulse 94; Resp 20; Temp 96.8(O); Pulse Ox 97% on R/A; Pain 0/10; js15 17:35 Body Mass Index 30.21 (79.83 kg, 162.56 cm) gr2 MDM: 18:11 Financial registration complete. kf3 18:20 PTT Ordered. EDMS 18:20 PT/INR Ordered. EDMS 18:20 CBC Ordered. EDMS 18:52 [facility] Payment Agreement was scanned into [employer] and attached to record. kf3 19:18 CBC Reviewed. le 19:18 PTT Reviewed. le 19:18 PT/INR Reviewed. le 19:20 Vital Signs ordered. le Signatures: Dispatcher [employer] EDHalima Mcdaniel, RN RN Orquidea Henao, TEST MAN TEST MAN le Jorge Tavarez, Reg Reg kf3 Liz Greenwood,RN RN js15 The chart was reviewed and I authenticate all verbal orders and agree with the evaluation and treatment provided.Attachments: 18:52 [facility] Payment Agreement kf3 MTDD
--- NOTE | 2016-07-07 20:39 | EDDOCDS ---
Physician Documentation [facility] Name: Patience Gonzalez Age: 76 yrs Sex: Female : 1940 Arrival Date: 07/05/2016 Time: 17:33 Bed 15 Private MD: Nahomy Killian E Disposition: 07/05/16 19:24 Discharged to Home/Self Care. Impression: Epistaxis. - Condition is Stable. - Discharge Instructions: Nosebleed. - Medication Reconciliation, Local Pharmacy Hours form. - Follow up: Nahomy Killian; When: Call to arrange an appointment; Reason: Recheck today's complaints, Continuance of care. - Problem is new. - Symptoms are resolved. - Notes: Avoid: Blowing your nose: it is best to wipe away nasal secretions carefully. Sneezing: If you must sneeze, keep your mouth open and do not pinch your nose closed Sucking: Do not drink through a straw Blowing: Do not blow up balloons, or similar items Pushing or lifting: Do not lift or push objects weighing more than 20 pounds Bending over: Keep your head above the level of your heart. Sleep with you head slightly raised If your nose starts bleeding again, use the nose clip and an ice pack to the back of your neck. Return to the ER if you nose is still bleeding a 1/2 hour after you apply the clip Historical: - Allergies: no known allergies; - Home Meds: 1. ferrous gluconate 325 mg (37 mg iron) Oral tab 2. gemfibrozil 600 mg Oral tab daily 3. glipizide 2.5 mg Oral tr24 1 tabs once daily 4. Lasix 40 mg Oral tab once daily 5. levothyroxine 137 mcg Oral cap 1 cap once daily 6. magnesium oxide 400 mg Oral cap 400 mg three times a day 7. metformin 1,000 mg Oral tab 1 tab 2 times per day 8. ramipril 10 mg Oral cap once daily 9. simvastatin 20 mg Oral tab 1 tab once daily 10. valsartan 80 mg oral cap daily 11. Xarelto 20 mg oral tab 1 tab once daily - PMHx: Diabetes - NIDDM: controlled; Hypercholesterolemia; Hypertension; Hypothyroidism; - PSHx: Knee surgery- Right; - Social history: Smoking status: Patient states former smoker of tobacco. No barriers to communication noted, The patient speaks fluent Arabic, Speaks appropriately for age. - Family history: Not pertinent. - : The pt / caregiver states he / she is on anticoagulants: Xarelto Home medication list is obtained from the patient. - Exposure Risk Screening:: None identified. Vital Signs: 07/05 17:35 BP 204 / 115; Pulse 115; Resp 18 S; Temp 98.6(O); Pulse Ox 99% on R/A; Weight 79.83 kg gr2 / 176 lbs (R); Height 5 ft. 4 in. (162.56 cm) (R); Pain 0/10; 19:25 BP 165 / 78; Pulse 94; Resp 20; Temp 96.8(O); Pulse Ox 97% on R/A; Pain 0/10; js15 17:35 Body Mass Index 30.21 (79.83 kg, 162.56 cm) gr2 MDM: 18:11 Financial registration complete. kf3 18:20 PTT Ordered. EDMS 18:20 PT/INR Ordered. EDMS 18:20 CBC Ordered. EDMS 18:52 [facility] Payment Agreement was scanned into [employer] and attached to record. kf3 19:18 CBC Reviewed. le 19:18 PTT Reviewed. le 19:18 PT/INR Reviewed. le 19:20 Vital Signs ordered. le 07/06 20:17 T-Sheet-- Draft Copy was scanned into [employer] and attached to record. klr Signatures: Dispatcher [employer] EDHalima Mcdaniel RN RN srm Westcott, Lisa, EQUIPMENT WORKER EQUIPMENT WORKER Jorge Turner, Reg Reg kf3 Liz GreenwoodRN RN jsTrisha Buckner klr The chart was reviewed and I authenticate all verbal orders and agree with the evaluation and treatment provided.Attachments: 07/05 18:52 [facility] Payment Agreement kf3 07/06 20:17 T-Sheet-- Draft Copy klr Chart Complete MTDD
--- NOTE | 2016-07-07 20:39 | EDDOCDS ---
Physician Documentation [facility] Name: Patience Gonzalez Age: 76 yrs Sex: Female : 1940 Arrival Date: 07/05/2016 Time: 17:33 Bed 15 Private MD: Nahomy Killian E Disposition: 07/05/16 19:24 Discharged to Home/Self Care. Impression: Epistaxis. - Condition is Stable. - Discharge Instructions: Nosebleed. - Medication Reconciliation, Local Pharmacy Hours form. - Follow up: Nahomy Killian; When: Call to arrange an appointment; Reason: Recheck today's complaints, Continuance of care. - Problem is new. - Symptoms are resolved. - Notes: Avoid: Blowing your nose: it is best to wipe away nasal secretions carefully. Sneezing: If you must sneeze, keep your mouth open and do not pinch your nose closed Sucking: Do not drink through a straw Blowing: Do not blow up balloons, or similar items Pushing or lifting: Do not lift or push objects weighing more than 20 pounds Bending over: Keep your head above the level of your heart. Sleep with you head slightly raised If your nose starts bleeding again, use the nose clip and an ice pack to the back of your neck. Return to the ER if you nose is still bleeding a 1/2 hour after you apply the clip Historical: - Allergies: no known allergies; - Home Meds: 1. ferrous gluconate 325 mg (37 mg iron) Oral tab 2. gemfibrozil 600 mg Oral tab daily 3. glipizide 2.5 mg Oral tr24 1 tabs once daily 4. Lasix 40 mg Oral tab once daily 5. levothyroxine 137 mcg Oral cap 1 cap once daily 6. magnesium oxide 400 mg Oral cap 400 mg three times a day 7. metformin 1,000 mg Oral tab 1 tab 2 times per day 8. ramipril 10 mg Oral cap once daily 9. simvastatin 20 mg Oral tab 1 tab once daily 10. valsartan 80 mg oral cap daily 11. Xarelto 20 mg oral tab 1 tab once daily - PMHx: Diabetes - NIDDM: controlled; Hypercholesterolemia; Hypertension; Hypothyroidism; - PSHx: Knee surgery- Right; - Social history: Smoking status: Patient states former smoker of tobacco. No barriers to communication noted, The patient speaks fluent Latvian, Speaks appropriately for age. - Family history: Not pertinent. - : The pt / caregiver states he / she is on anticoagulants: Xarelto Home medication list is obtained from the patient. - Exposure Risk Screening:: None identified. Vital Signs: 07/05 17:35 BP 204 / 115; Pulse 115; Resp 18 S; Temp 98.6(O); Pulse Ox 99% on R/A; Weight 79.83 kg gr2 / 176 lbs (R); Height 5 ft. 4 in. (162.56 cm) (R); Pain 0/10; 19:25 BP 165 / 78; Pulse 94; Resp 20; Temp 96.8(O); Pulse Ox 97% on R/A; Pain 0/10; js15 17:35 Body Mass Index 30.21 (79.83 kg, 162.56 cm) gr2 MDM: 18:11 Financial registration complete. kf3 18:20 PTT Ordered. EDMS 18:20 PT/INR Ordered. EDMS 18:20 CBC Ordered. EDMS 18:52 [facility] Payment Agreement was scanned into [employer] and attached to record. kf3 19:18 CBC Reviewed. le 19:18 PTT Reviewed. le 19:18 PT/INR Reviewed. le 19:20 Vital Signs ordered. le 07/06 20:17 T-Sheet-- Draft Copy was scanned into [employer] and attached to record. klr Signatures: Dispatcher [employer] EDHalima Mcdaniel RN RN srm Westcott, Lisa, PRESS WASHER PRESS WASHER Jorge Turner, Reg Reg kf3 Liz GreenwoodRN RN jsTrisha Buckner klr The chart was reviewed and I authenticate all verbal orders and agree with the evaluation and treatment provided.Attachments: 07/05 18:52 [facility] Payment Agreement kf3 07/06 20:17 T-Sheet-- Draft Copy klr Chart Complete MTDD
--- NOTE | 2016-07-07 20:39 | EDDOCDS ---
Nurse's Notes [facility] Name: Patience Gonzalez Age: 76 yrs Sex: Female : 1940 Arrival Date: 07/05/2016 Time: 17:33 Bed 15 Private MD: Nahomy Killian E Diagnosis: Epistaxis Presentation: 07/05 17:40 Presenting complaint: Patient states: started with right side nose bleed at 2pm today . srm now bleeding from left. pt is on xarelto. blood dribbling from left nare. Adult Sepsis Screening: The patient does not have new or worsening altered mentation. Patient's respiratory rate is less than 22. Systolic blood pressure is greater than 100. Patient has a qSOFA score of 0- Negative Sepsis Screen. Suicide/Homicide risk assessment- the patient denies having any suicidal and/or homicidal ideations and does not present with any other emotional, behavioral or mental health complaints. Status: Patient is not a financial service professional or dependent. Transition of care: patient was not received from another setting of care. 17:40 Acuity: GRISEL Level 3 srm 17:40 Method Of Arrival: Walkin/Carried/Asstd srm Triage Assessment: 17:42 General: Appears in no apparent distress, Behavior is appropriate for age, cooperative. srm Pain: Denies pain. Historical: - Allergies: no known allergies; - Home Meds: 1. ferrous gluconate 325 mg (37 mg iron) Oral tab 2. gemfibrozil 600 mg Oral tab daily 3. glipizide 2.5 mg Oral tr24 1 tabs once daily 4. Lasix 40 mg Oral tab once daily 5. levothyroxine 137 mcg Oral cap 1 cap once daily 6. magnesium oxide 400 mg Oral cap 400 mg three times a day 7. metformin 1,000 mg Oral tab 1 tab 2 times per day 8. ramipril 10 mg Oral cap once daily 9. simvastatin 20 mg Oral tab 1 tab once daily 10. valsartan 80 mg oral cap daily 11. Xarelto 20 mg oral tab 1 tab once daily - PMHx: Diabetes - NIDDM: controlled; Hypercholesterolemia; Hypertension; Hypothyroidism; - PSHx: Knee surgery- Right; - Social history: Smoking status: Patient states former smoker of tobacco. No barriers to communication noted, The patient speaks fluent Kazakh, Speaks appropriately for age. - Family history: Not pertinent. - : The pt / caregiver states he / she is on anticoagulants: Xarelto Home medication list is obtained from the patient. - Exposure Risk Screening:: None identified. Screenin:26 Screening information is obtained from the patient. Fall risk: No risks identified. js15 Assistance ADL's: requires no assistance with activities of daily living. Abuse/DV Screen: The patient / caregiver reports he/she is: not in a situation that causes fear, pain or injury. Nutritional screening: No deficits noted. Advance Directives: There is. home support is adequate. Assessment: 19:25 General: Appears in no apparent distress, comfortable, Behavior is appropriate for age, js15 cooperative. Pain: Denies pain. Neurological: Level of Consciousness is awake, alert, obeys commands, Oriented to person, place, time. EENT: Nares are clear bilaterally. Respiratory: Airway is patent Respiratory effort is even, unlabored, Respiratory pattern is regular, symmetrical. Derm: Skin is pink, warm & dry. Vital Signs: 17:35 BP 204 / 115; Pulse 115; Resp 18 S; Temp 98.6(O); Pulse Ox 99% on R/A; Weight 79.83 kg gr2 (R); Height 5 ft. 4 in. (162.56 cm) (R); Pain 0/10; 19:25 BP 165 / 78; Pulse 94; Resp 20; Temp 96.8(O); Pulse Ox 97% on R/A; Pain 0/10; js15 17:35 Body Mass Index 30.21 (79.83 kg, 162.56 cm) gr2 Vitals: 17:35 Log In Time: July 05, 2016 at 17:35. RN notified that patient meets Red Flag gr2 criteria. ED Course: 17:34 Patient visited by Kim Alfaro. gr2 17:34 Nahomy Killian is Private Physician. gr2 17:34 Patient moved to Waiting gr2 17:41 Triage Initiated srm 17:42 Patient visited by Kim Alfaro. gr2 17:43 Patient moved to 15 srm 18:05 [facility] le 18:09 Patient visited by Orquidea Crowley FNP. le 18:10 Patient visited by Orquidea Crowley FNP. le 18:52 [facility] Payment Agreement was scanned into [employer] and attached to record. kf3 18:53 Patient visited by Will Mullins RN. ml6 19:23 Nahomy Killian is Referral Physician. le 19:26 The patient / caregiver is instructed regarding the plan of care and ED course. js15 19:26 No IV's were initiated during this patient's visit. No procedures done that require js15 assistance. 07/06 20:17 T-Sheet-- Draft Copy was scanned into [employer] and attached to record. klr Order Results: Lab Order: PTT; [facility] 07/05/16 18:23 Test: PARTIAL THROMBOPLASTIN TIME; Value: 33.3; Range: 26.6-37.1; Units: SECONDS; Status: F Lab Order: PT/INR; [facility]' 07/05/16 18:23 Test: PROTHROMBIN TIME; Value: 13.3; Range: 12.3-14.5; Units: SECONDS; Status: F Test: INR; Value: 1.00; Status: F Test Note: ; THERAPUTIC HUMAN INR VALUES INDICATIONS NORMAL RANGES PROPHYLAXIS/TREATMENT OF: VENOUS THROMBOSIS 2.0-3.0 PULMONARY EMBOLISM 2.0-3.0 PREVENTION OF SYSTEMIC EMBOLISM FROM: TISSUE HEART VALVES 2.0-3.0 ACUTE MYOCARDIAL INFARCTION 2.0-3.0 VALVULAR HEART DISEASE 2.0-3.0 ATRIAL FIBRILLATION 2.0-3.0 MECHANICAL VALVES(HIGH RISK) 2.5-3.5 RECURRENT MYOCARDIAL INFARCTION 2.5-3.5 Lab Order: CBC; [facility]' 07/05/16 18:23 Test: WHITE BLOOD COUNT; Value: 6.1; Range: 4.0-10.0; Units: K/mm3; Status: F Test: RED BLOOD COUNT; Value: 4.20; Range: 4.00-5.40; Units: M/mm3; Status: F Test: HEMOGLOBIN; Value: 8.4; Range: 12.0-16.0; Abnormal: Below low normal; Units: g/dl; Status: F Test: HEMATOCRIT; Value: 29.7; Range: 36.0-47.0; Abnormal: Below low normal; Units: %; Status: F Test: MEAN CORPUSCULAR VOLUME; Value: 70.7; Range: 80.0-96.0; Abnormal: Below low normal; Units: fl; Status: F Test: MEAN CORPUSCULAR HEMOGLOBIN; Value: 20.1; Range: 27.0-33.0; Abnormal: Below low normal; Units: pg; Status: F Test: MEAN CORPUSCULAR HGB CONC; Value: 28.4; Range: 32.0-36.5; Abnormal: Below low normal; Units: g/dl; Status: F Test: RED CELL DISTRIBUTION WIDTH; Value: 18.2; Range: 11.5-14.5; Abnormal: Above high normal; Units: %; Status: F Test: PLATELET COUNT, AUTOMATED; Value: 311; Range: 150-450; Units: k/mm3; Status: F Outcome: 07/05 19:24 Discharge ordered by Provider. le 19:37 Discharge Assessment: Patient awake, alert and oriented x 3. No cognitive and/or js15 functional deficits noted. Patient verbalized understanding of disposition instructions. patient administered narcotics - no. The following High Risk Discharge criteria are identified: None. Discharged to home ambulatory, with significant other. Condition: improved. Discharge instructions given to patient, Instructed on discharge instructions, follow up and referral plans. prevention of nosebleeds Demonstrated understanding of instructions, nosebleed prevention Pt was receptive of discharge instructions/ teaching. No special radiology studies were completed. Property sent home with patient. 19:38 Patient left the ED. js15 Signatures: Halima Leslie, RN RN [facility] Orquidea Crowley, STRANDING MACHINE OPERATOR STRANDING MACHINE OPERATOR le Jorge Tavarez, Reg Reg kf3 Will Mullins RN RN ml6 Kim Alfaro gr2 Liz Greenwood RN RN js15 Trisha Ramirez Chart Complete MTDD
== END 2016-07-05 19:38 | disposition home or self-care (01) ==
LOC: M ED 17:33
DX: R04.0 Epistaxis (principal); E11.9 Type 2 diabetes mellitus without complications; E78.00 Pure hypercholesterolemia, unspecified; I10 Essential (primary) hypertension; E03.9 Hypothyroidism, unspecified; Z87.891 Personal history of nicotine dependence; Z79.01 Long term (current) use of anticoagulants; Z79.899 Other long term (current) drug therapy

== ENCOUNTER → 2016-10-22 | Outpatient (REF) | payer MEDICARE, OTHER ==
[~2016-10-22] MED LIST changes: +MONT10TA2; +NORC1TAB4 PO; -NORC5TAB PO; +SITA50TAB; +XARE20TA
[2016-10-22 20:06] LABS: PERCENT SATURATION 7.9 % (13.2-37.4)
== END ==
LOC: M LAB REF 13:52
PROVIDERS: ATTEND Internal Medicine
DX: D50.9 Iron deficiency anemia, unspecified (principal); J30.9 Allergic rhinitis, unspecified

== ENCOUNTER 2016-11-05 17:40 | Emergency (ER) | payer MEDICARE, OTHER ==
[~2016-11-05 17:40] MED LIST changes: +BACITAB PO; -BACITAB3 PO; +CLIN150C14 PO; -CLIN1CAP5 PO; +KEFL500C17 PO; -KEFL500C7 PO; -METF1000 PO; +METF10004 PO; -MONT10TA2; -SITA50TAB; -VITA-130 PO; +VITA500T PO; -XARE20TA
[2016-11-05] MEDS ORDERED: SITA50TAB (17:52)
[2016-11-05] MEDS ORDERED: XARE20TA (17:52)
[2016-11-05] MEDS ORDERED: MONT10TA2 (17:52)
[2016-11-05] MEDS ORDERED: ONDANSETRON 4MG/2ML VIAL (J2405) IV ONE (18:00)
[2016-11-05] MEDS ORDERED: NS 1,000 ML IV ONE (18:00)
[2016-11-05 18:16] LABS: ADD MANUAL DIFFER YES; MEAN CORPUSCULAR HEMOGLOBIN 20.6 pg (27.0-33.0); MEAN CORPUSCULAR HGB CONC 27.8 g/dl (32.0-36.5); MEAN CORPUSCULAR VOLUME 74.1 fl (80.0-96.0); PLATELET COUNT, AUTOMATED 355 k/mm3 (150-450); RED CELL DISTRIBUTION WIDTH 18.6 % (11.5-14.5); WHITE BLOOD COUNT 15.6 K/mm3 (4.0-10.0)
[2016-11-05 18:18] LABS: INR 1.06
--- NOTE | 2016-11-05 18:27 | REP ---
Clinical: Abdominal pain. Technique: Supine view of the chest and abdomen/pelvis with cross-table lateral views of the abdomen. Findings: Frontal view of the chest demonstrates chronic stable changes compared to 05/10/2015. Supine and cross-table lateral views of the abdomen and pelvis demonstrate nonspecific bowel gas pattern without evidence for obstruction or perforation. Age-related degenerative changes to the musculoskeletal structures noted including old healed fractures of the right pubic rami. Impression: Nonspecific bowel gas pattern. Degenerative changes the musculoskeletal structures and evidence for old healed pelvic fractures. Signed by Jan Villatoro MD 11/05/2016 06:17 P
[2016-11-05 18:45] LABS: ALBUMIN/GLOBULIN RATIO 0.89 (1.00-1.93); BILIRUBIN,DIRECT 0.4 MG/DL (0.0-0.2); BILIRUBIN,TOTAL 1.1 MG/DL (0.2-1.0); CALCIUM LEVEL 9.4 MG/DL (8.8-10.2); CREATININE FOR GFR 1.35 MG/DL (0.55-1.02); GLOMERULAR FILTRATION RATE 40.8 (>39); POTASSIUM SERUM 4.2 MEQ/L (3.5-5.1); TOTAL PROTEIN 8.5 GM/DL (6.4-8.2)
[2016-11-05] MEDS ORDERED: EPINEPHrine 1MG/10ML SYRINGE 1.5IN ONE (18:48)
[2016-11-05] MEDS ORDERED: ATROPINE SULF 1MG/10ML SYRINGE (J0461) ONE (18:48)
[2016-11-05] MEDS ORDERED: TENECTEPLASE 50 MG KIT (TNKase)(J3101) ONE (18:48)
[2016-11-05 19:27] LABS: BASOPHILS 1 % (0-4); EOSINOPHILS 1 % (0-5)
[2016-11-05 19:28] LABS: ANISOCYTOSIS 2+; HYPOCHROMASIA 2+; MICROCYTOSIS 2+
[2016-11-05 19:29] LABS: POIKILOCYTOSIS 1+
[2016-11-05] MEDS ORDERED: HEPARIN DRIP 25,000 UNITS in APPROPRIATE DILUENT 1 EA IV SCH (19:48)
[2016-11-05] MEDS ORDERED: NOREPINEPHRINE 4 MG/4 ML AMP As Ordered ONE (19:50)
[2016-11-05 19:54] VITALS: BP 74/45
[2016-11-05] MEDS ORDERED: HEPARIN SOD (PORCINE) 5000 UNITS/ML VIAL IV ONE (20:00)
[2016-11-05] MEDS ORDERED: TENECTEPLASE 50 MG KIT (TNKase)(J3101) IV ONE (20:00)
[2016-11-05] MEDS ORDERED: METAL LOCK LOOP XX ONE (22:16)
--- NOTE | 2016-11-09 07:26 | ECGEPIP ---
Stationary ECG Study [facility] - ED Test Date: 2016-11-05 Pat Name: STEPH GILMORE Department: Room: - Gender: F Program Clerk: ronni : 1940 Requested By: ANUP SIMS Order Number: [id number] Reading MD: Carla Bolton Measurements Intervals [place] Rate: 38 P: NM: 0 QRS: -37 QRSD: 153 T: 24 QT: 400 QTc: 320 Interpretive Statements UNCERTAIN IRREGULAR RHYTHM INTRAVENTRICULAR CONDUCTION DELAY INFERIOR MYOCARDIAL INFARCTION, PROBABLY RECENT ACUTE MA CLINICAL CORRELATION Electronically Signed On 11-09-2016 7:26:00 EDT by Carla Bolton
== END 2016-11-05 23:09 | disposition expired ==
LOC: M ED 18:47
DX: I46.9 Cardiac arrest, cause unspecified (principal); I51.9 Heart disease, unspecified; E11.9 Type 2 diabetes mellitus without complications; I10 Essential (primary) hypertension; Z79.899 Other long term (current) drug therapy; Z79.84 Long term (current) use of oral hypoglycemic drugs; Z79.01 Long term (current) use of anticoagulants
CPT/HCPCS: 31500; 74022; 80048; 80076; 82550; 82553; 83690; 84484; 85025; 85610; 92950; 93005; 94760; 96361; 96374; 96375; 99285; J0461; J2405; J3101